=== PATIENT | male | born 1980 | race Caucasian/White ===

== ENCOUNTER 2017-02-18 20:47 | Emergency (ER) | payer MEDICAID ==
[~2017-02-18] VITALS: Ht 170.2 cm; Wt 74.8 kg
[2017-02-18 21:10] VITALS: BP 136/73
== END 2017-02-18 23:51 | disposition left against medical advice (07) ==
LOC: M ED 23:06
DX: Z04.71 Encounter for examination and observation following alleged adult physical abuse (principal); Z53.29 Procedure and treatment not carried out because of patient's decision for other reasons

== ENCOUNTER 2019-03-11 11:06 | Emergency (ER) | payer MEDICAID, OTHER ==
[~2019-03-11] VITALS: Ht 170.2 cm; Wt 76.1 kg
[2019-03-11 11:06] VITALS: BP 165/80
== END 2019-03-11 12:59 | disposition left against medical advice (07) ==
LOC: M ED 11:06
DX: M25.511 Pain in right shoulder (principal); Z53.21 Procedure and treatment not carried out due to patient leaving prior to being seen by health care provider

== ENCOUNTER → 2024-01-09 | Outpatient (CLI) | payer OTHER | LOC: M PLARAD 09:38 | PROVIDERS: ATTEND Physician Assistant | DX: M47.816 Spondylosis without myelopathy or radiculopathy, lumbar region (principal); M51.26 Other intervertebral disc displacement, lumbar region ==

== ENCOUNTER → 2024-11-06 | Outpatient (CLI) | payer OTHER | LOC: M RAD 11:11 | PROVIDERS: ATTEND Physician Assistant | DX: M50.30 Other cervical disc degeneration, unspecified cervical region (principal) ==

== ENCOUNTER → 2025-06-25 | Outpatient (CLI) | payer OTHER ==
[2025-06-25 10:46] LABS: PLATELET COUNT, AUTOMATED 367 10^3/uL (150-450)
[2025-06-25 11:07] LABS: ESTIMATED AVERAGE GLUCOSE 100.0 MG/DL (60-110)
[2025-06-25 11:18] LABS: FREE T4 1.08 NG/DL (0.89-1.76)
[2025-06-25 11:19] LABS: ALT/SGPT 32 U/L (7.0-40); AST/SGOT 21 U/L (<34); CALCIUM LEVEL 9.6 MG/DL (8.5-10.1); CARBON DIOXIDE LEVEL 30 MMOL/L (20-31); CHLORIDE LEVEL 106 MMOL/L (98-107); CHOLESTEROL LEVEL 272 MG/DL (<200); CHOLESTEROL RISK RATIO 8.19 (<5); CREATININE FOR GFR 0.91 MG/DL (0.70-1.30); GLOMERULAR FILTRATION RATE > 90.0 (>60); LDL CHOLESTEROL 174.2 MG/DL (<100); NON-HDL-C 238.8 MG/DL; POTASSIUM SERUM 4.6 MMOL/L (3.5-5.1); SODIUM LEVEL 143 MMOL/L (136-145); TRIGLYCERIDES LEVEL 323 MG/DL (<150)
== END ==
LOC: M PLALAB 08:49
DX: M54.6 Pain in thoracic spine (principal)